=== PATIENT | female | born 1995 | race Caucasian/White ===

== ENCOUNTER 2018-11-02 08:53 | Emergency (ER) | payer BC ==
[2018-11-02 09:05] VITALS: BP 157/103
--- NOTE | 2018-11-02 11:16 | UC ---
Skin Complaint HPI - HPI Summary HPI Summary: pain and swelling under the tongue x 1 day had Underside of tongue pierced yesterday , today the area is sore and very swollen cannot eat or drink no fever, no chills - History of Current Complaint Chief Complaint: UCGeneralIllness Stated Complaint: SWOLLEN TONGUE (PIERCING) Hx Obtained From: Patient ?: No Onset/Duration: Sudden Onset, Lasting Days - 1, Still Present Timing: Constant Onset Severity: Moderate Current Severity: Severe Pain Intensity: 6 Pain Scale Used: 0-10 Numeric Location: Other - under tongue Character: Swelling, Pain, Redness, Raised, Painful Aggravating Factor(s): Touch Alleviating Factor(s): Nothing Associated Signs & Symptoms: Positive: Tenderness. Negative: Nausea, Vomiting, Numbness, Thirst Related History: Foreign Body - Underside of tongue pierced - Allergy/Home Medications Allergies/Adverse Reactions: Allergies Allergy/AdvReac Type Severity Reaction Status Date / Time No Known Allergies Allergy Verified 11/02/18 09:01 Home Medications: Home Medications Control Pill 1 dose PO DAILY 11/02/18 [History Confirmed 11/02/18] PMH/Surg Hx/FS Hx/Imm Hx Previously Healthy: Yes - Surgical History Surgical History: None - Family History Known Family History: Negative: Diabetes - Social History Alcohol Use: Occasionally Substance Use Type: Marijuana Smoking Status (MU): Never Smoked Tobacco Review of Systems All Other Systems Reviewed And Are Negative: Yes Constitutional: Positive: Negative Skin: Positive: Negative Eyes: Positive: Negative ENT: Positive: Negative Is Patient Immunocompromised?: No Physical Exam Triage Information Reviewed: Yes Appearance: Well-Appearing, No Pain Distress, Well-Nourished Vital Signs: Initial Vital Signs Temp 98.0 F 11/02/18 09:02 Pulse 86 11/02/18 09:02 Resp 15 11/02/18 09:02 BP 157/103 11/02/18 09:02 Pulse Ox 99 11/02/18 09:02 Vital Signs Reviewed: Yes Eye Exam: Normal Eyes: Positive: Conjunctiva Clear ENT Exam: Normal ENT: Positive: Normal ENT inspection, Hearing grossly normal, Pharynx normal, Muffled voice, Other - Underside of tongue pierced , the area is swollen, red, tender to touch Neck: Positive: Supple, Nontender, No Lymphadenopathy Respiratory: Positive: Chest non-tender, Lungs clear, Normal breath sounds Cardiovascular: Positive: RRR, No Murmur, Pulses Normal Skin Exam: Normal Procedures - Procedure Summary Procedure Summary: Underside of tongue pierced the piercing was removed using a forceps no anesthesia was used Course/Dx - Diagnoses Provider Diagnosis: Foreign body in mouth Discharge - Sign-Out/Discharge Documenting (check all that apply): Patient Departure All imaging exams completed and their final reports reviewed: No Studies - Discharge Plan Condition: Stable Disposition: HOME Prescriptions: Cephalexin CAP* [Keflex CAP*] 500 mg PO TID #21 cap Patient Education Materials: Soft Tissue Foreign Body (ED) Additional Instructions: use ice for the swelling and inflammation take Tylenol as needed for pain antibiotics for 7 days for possible infection follow up in 2 days if not better - Billing Disposition and Condition Condition: STABLE Disposition: Home
== END 2018-11-02 09:40 | disposition home or self-care (01) ==
LOC: UCCORT 08:53
DX: T18.0XXA Foreign body in mouth, initial encounter (principal); X58.XXXA Exposure to other specified factors, initial encounter; Y92.9 Unspecified place or not applicable
CPT/HCPCS: 99202; G0463